=== PATIENT | female | born 1975 | race Caucasian/White ===

== ENCOUNTER → 2019-04-29 | Outpatient (CLI) | payer OTHER ==
[~2019-04-29] MED LIST: GENTAMICIN EYE D5 ML OP; MOTRIN 800800 MG/TAB PO; NO HOME MEDICATIONS; NORCO 325 MG-51 TAB PO; PERCOCET 500 MG1 TAB PO; ZITHROMAX 250M250 MG PO
== END ==
LOC: MC.RAD 10:39
DX: Z12.31 Encounter for screening mammogram for malignant neoplasm of breast (principal); N64.89 Other specified disorders of breast

== ENCOUNTER → 2019-05-14 | Outpatient (CLI) | payer OTHER | LOC: MC.RAD 10:26 | DX: N64.89 Other specified disorders of breast (principal) | CPT/HCPCS: G0279 ==

== ENCOUNTER → 2020-01-04 | Outpatient (CLI) | payer OTHER | LOC: MC.RAD 07:50 | DX: Z12.31 Encounter for screening mammogram for malignant neoplasm of breast (principal) ==